=== PATIENT | female | born 2000 | race Caucasian/White ===

== ENCOUNTER 2021-10-16 12:41 | Emergency (ER) | payer OTHER, SELFPAY ==
[2021-10-16 12:50] VITALS: BP 129/73; PULSE 84; RESP 16; TEMP 36.6; O2SAT 99
--- NOTE | 2021-10-16 15:22 | ED.URI ---
HPI - URI/Sore Throat General Chief Complaint: Upper Respiratory Infection Stated Complaint: Sinus Pain Time Seen by Provider: 10/16/21 15:22 Source: patient and RN notes reviewed Mode of arrival: ambulatory Limitations: no limitations History of Present Illness HPI Narrative: 21-year-old female presented for complaint of sinus pressure, congestion, cough and sore throat worsening over the past 4 days. She endorses a history of frequent sinus infections and has been unable to get into an ENT. She denies chest pain, shortness breath, wheezing, nausea, vomiting, diarrhea, fever or chills. She is boosted for COVID and vaccinated for flu. She denies sick contacts. MD elicited complaint: cough Related Data Home Medications Medication Instructions Recorded Confirmed norethindrone-e.estradiol-iron 1 tablet PO DAILY 10/16/21 10/16/21 Allergies Allergy/AdvReac Type Severity Reaction Status Date / Time No Known Allergies Allergy Unverified 10/16/21 13:54 Review of Systems Review of Systems: CONSTITUTIONAL: Denies malaise, chills, sweats, fever EYES: Denies visual changes, redness, or discharge ENT: Reports rhinorrhea, congestion, sinus pain, otalgia, sore throat CARDIOVASCULAR: Denies chest pain, palpitations, edema RESPIRATORY: Reports cough, post nasal drainage. Denies dyspnea GASTROINTESTINAL: Denies abdominal pain, nausea, vomiting, diarrhea SKIN: Denies rash or itching MUSCULOSKELETAL: Denies myalgia NEUROLOGIC: Denies headache Exam Narrative: GENERAL: Well-appearing HEAD: Normocephalic EYES: PERRLA, conjunctivae clear ENT: Sinus congestion, mucous membranes moist. TM pearly noguera with dull light reflex bilaterally; no tragal tenderness. Oropharynx erythematous without lesions or exudate, no drooling, no hoarseness, no trismus, uvula midline. NECK: Supple. No lymphadenopathy CHEST: Clear to auscultation, breath sounds equal. No wheezing, rhonchi, rales, or stridor. No respiratory distress, speaks in full sentences. HEART: Regular rate and rhythm. No murmur heard. SKIN: Warm, dry, no rash. NEURO: Alert and oriented x3. PSYCH: Normal mood and affect Course Course Emergency Course: Patient is aware of diagnosis, understands and agrees to treatment plan. Anticipatory guidance given. Patient agrees to follow-up as directed and is aware of reasons to seek care at the emergency department. Portions of this record may have been created with voice recognition software Level of Care: Express Care Visit Vital Signs Vital signs: Vital Signs Temperature 98 F 10/16/21 12:50 Pulse Rate 84 10/16/21 12:50 Respiratory Rate 16 10/16/21 12:50 Blood Pressure 129/73 10/16/21 12:50 Pulse Oximetry 99 10/16/21 12:50 Temperature 98 F 10/16/21 12:50 Pulse Rate 84 10/16/21 12:50 Respiratory Rate 16 10/16/21 12:50 Blood Pressure 129/73 10/16/21 12:50 Pulse Oximetry 99 10/16/21 12:50 reviewed MDM - URI/Sore Throat MDM Narrative Medical decision making narrative: Will defer Covid and flu testing, she is boosted and vaccinated, denies sick contacts and symptoms are consistent with previous sinus infections. She is advised to take antibiotic should symptoms persist beyond 10 days. She states she will establish with an ENT. Differential Diagnosis Differential diagnosis: Likely upper respiratory infection, sinusitis and viral infection Discharge Plan Discharge Clinical Impression: Upper respiratory infection Qualifiers: URI type: unspecified URI Qualified Code(s): J06.9 - Acute upper respiratory infection, unspecified Patient Disposition: Home, Self-Care Condition: Stable Instructions: Antibiotic Form Additional Instructions: Continue Flonase spray and Zyrtec You can take wyzg-tuh-[id number] cough syrup, it may cause drowsiness; avoid driving or take it at night time. Prescription for Tessalon Perles for cough as needed, antibiotic should symptoms persist or worsen in the next week Tyl
== END 2021-10-16 15:35 | disposition home or self-care (01) ==
PROVIDERS: Emergency Provider Nurse Practitioner Family
DX: J06.9 Acute upper respiratory infection, unspecified (principal)
CPT/HCPCS: 99203; G0463